=== PATIENT | male | born 1945 | race Two or more races ===

== ENCOUNTER 2024-06-21 01:00 | Inpatient (IN) | payer MEDICARE, OTHER ==
[2024-06-21] VITALS (14 sets, daily range): BP systolic 107–136; BP diastolic 55–75; TEMP 98.1–100.4; O2SAT 95–100
[~2024-06-21] VITALS: Ht 170.2 cm; Wt 68.0 kg
[2024-06-21] MEDS ORDERED: ONDANSETRON HCL/PF 4 MG/2 ML VIAL IVP PRN (04:00)
[2024-06-21] MEDS: IV NS 0.9% 1,000 ML IV SCH (04:27)
[2024-06-21] MEDS ORDERED: VANCOMYCIN 1 GM in IV D5W 250ml IV ONE (04:30)
[2024-06-21] MEDS ORDERED: METRONIDAZOLE 500MG/ NS 100ML 100 ML IV ONE (04:57)
[2024-06-21] MEDS ORDERED: CEFEPIME 1 GM VIAL ONE (04:57)
[2024-06-21] MEDS: METRONIDAZOLE 500MG/ NS 100ML 500 MG in PREMIX 1 EA IV ONE (05:04)
[2024-06-21] MEDS: CEFEPIME 2 GM in IV D5W 100 ML IV ONE (07:32)
[2024-06-21 07:44] LABS: BASOPHILS % (AUTO) 0.2 % (0.0-2.0); EOSINOPHILS # (AUTO) 0.5 K/uL (0.0-0.7); EOSINOPHILS % (AUTO) 2.4 % (0.0-6.0); HEMATOCRIT 26 % (39-51); HEMOGLOBIN 8.5 g/dL (13.5-17.5); LYMPHOCYTES # (AUTO) 1.2 K/uL (0.8-4.8); MEAN CORPUSCULAR HEMOGLOBIN 29 PG (26.0-33.0); MEAN CORPUSCULAR HGB CONC 32 g/dl (31.0-36.0); MEAN CORPUSCULAR VOLUME 90 fL (80-96); NEUTROPHILS # (AUTO) 17.5 K/uL (1.8-8.9); NEUTROPHILS % (AUTO) 86.4 % (43.0-81.0); PLATELET COUNT (AUTO) 311 K/uL (150-450); RED BLOOD CELL COUNT(AUTO) 2.93 MIL/uL (4.5-6.0); RED CELL DISTRIBUTION WIDTH 16.1 % (11.5-15.0); WHITE BLOOD COUNT (AUTO) 20.2 K/uL (4.3-11.0)
[2024-06-21 08:38] LABS: CARBON DIOXIDE 27 mmol/L (21-32); CHLORIDE 104 mmol/L (98-107); CREATININE 1.5 mg/dL (0.6-1.3); GLUCOSE 166 mg/dL (74-106); POTASSIUM 4.7 mmol/L (3.5-5.1); SODIUM SERUM 136 mmol/L (136-145); UREA NITROGEN, BLOOD 30 mg/dL (7-18)
[2024-06-21] MEDS ORDERED: ONDA-97 PO (08:47)
[2024-06-21] MEDS ORDERED: DOCU100T2 GT (08:47)
[2024-06-21] MEDS ORDERED: PANT40TA2 GT (08:47)
[2024-06-21] MEDS ORDERED: ALBU2.5V38 IH (08:47)
[2024-06-21] MEDS ORDERED: AMLO5TAB4 GT (08:47)
[2024-06-21] MEDS: ENOXAPARIN SODIUM 40 MG/0.4 ML DISP.SYRIN SQ SCH (09:40)
[2024-06-21] MEDS: METRONIDAZOLE 500MG/ NS 100ML 500 MG in PREMIX 1 EA IV SCH (12:02)
[2024-06-21] MEDS: ACETAMINOPHEN 650 MG/SUPP.RECT RC PRN (12:38)
[2024-06-21] MEDS ORDERED: CEFEPIME 2 GM in IV D5W 100 ML IV SCH (13:00)
[2024-06-21] MEDS: CEFEPIME 2 GM in IV D5W 100 ML IV SCH (13:06)
[2024-06-21] MEDS: GLUCERNA 1.2 1,000 ML BOTTLE NG PRN (14:29)
[2024-06-21] MEDS ORDERED: IV NS 0.9% 1,000 ML BAG IV PRN (14:30)
[2024-06-21 16:35] LABS: APPEARANCE,URINE CLEAR (CLEAR); BILIRUBIN,URINE NEGATIVE (NEGATIVE); BLOOD, URINE TRACE-INTA Ery/uL (NEGATIVE); COLOR,URINE YELLOW (YELLOW); KETONES,URINE NEGATIVE (NEGATIVE); LEUKOCYTE ESTERASE ,URINE 2+ (NEGATIVE); NITRITE, URINE NEGATIVE (NEGATIVE); PH,URINE 6.5 (5.0-8.0); PROTEIN,URINE TRACE mg/dl (NEGATIVE); UGLUCOSE NEGATIVE (NEGATIVE); UROBILINOGEN,URINE 0.2 EU/dL (0.2)
[2024-06-21 17:03] LABS: ADD URINE CULTURE YES; BACTERIA,URINE 1+ /HPF (None Seen); WBC,URINE 21-50 /HPF (0-3)
[2024-06-21 17:14] LABS: MUCUS,URINE Few /LPF (None Seen); SQUAMOUS EPITHELIAL CELL,UR None Seen /HPF (None Seen)
[2024-06-21 17:16] LABS: EOSINOPHIL,URINE None Seen
[2024-06-21 17:19] LABS: URINE TOTAL PROTEIN 55.5 mg/dL (0-11.9)
[2024-06-21] MEDS: ALBUTEROL FS 2.5 MG/3 ML VIAL.NEB IH SCH (17:38)
[2024-06-22] VITALS (18 sets, daily range): BP systolic 124–153; BP diastolic 68–80; TEMP 97.9–99.5; O2SAT 94–100
[2024-06-22 07:43] LABS: BASOPHILS % (AUTO) 0.2 % (0.0-2.0); EOSINOPHILS # (AUTO) 0.5 K/uL (0.0-0.7); EOSINOPHILS % (AUTO) 2.6 % (0.0-6.0); HEMATOCRIT 27 % (39-51); HEMOGLOBIN 8.4 g/dL (13.5-17.5); LYMPHOCYTES # (AUTO) 1.6 K/uL (0.8-4.8); LYMPHOCYTES % (AUTO) 8.7 % (20.0-44.0); MEAN CORPUSCULAR HEMOGLOBIN 29 PG (26.0-33.0); MEAN CORPUSCULAR HGB CONC 32 g/dl (31.0-36.0); MEAN CORPUSCULAR VOLUME 90 fL (80-96); MONOCYTES # (AUTO) 1.2 K/uL (0.1-1.30); MONOCYTES % (AUTO) 6.3 % (2.0-12.0); NEUTROPHILS # (AUTO) 15.5 K/uL (1.8-8.9); NEUTROPHILS % (AUTO) 82.2 % (43.0-81.0); PLATELET COUNT (AUTO) 301 K/uL (150-450); RED BLOOD CELL COUNT(AUTO) 2.94 MIL/uL (4.5-6.0); RED CELL DISTRIBUTION WIDTH 15.9 % (11.5-15.0); WHITE BLOOD COUNT (AUTO) 18.9 K/uL (4.3-11.0)
[2024-06-22] MEDS: PANTOPRAZOLE 40 MG TABLET.DR PO SCH (08:01)
[2024-06-22 08:56] LABS: ALANINE AMINOTRANSFERASE 13 U/L (12-78); ALKALINE PHOSPHATASE 80 U/L (46-116); ASPARTATE AMINOTRANSFERASE 19 U/L (15-37); BILIRUBIN,TOTAL 0.4 mg/dL (0.2-1.0); CARBON DIOXIDE 26 mmol/L (21-32); CHLORIDE 105 mmol/L (98-107); CREATININE 1.3 mg/dL (0.6-1.3); GLUCOSE 197 mg/dL (74-106); MAGNESIUM 2.3 mg/dL (1.8-2.4); PHOSPHORUS 2.4 mg/dL (2.5-4.9); POTASSIUM 3.4 mmol/L (3.5-5.1); SODIUM SERUM 138 mmol/L (136-145); TOTAL PROTEIN, SERUM 8.9 g/dL (6.4-8.2)
[2024-06-22 09:23] LABS: CALCIUM, SERUM 9.5 mg/dL (8.5-10.1); UREA NITROGEN, BLOOD 23 mg/dL (7-18)
[2024-06-22 10:04] LABS: CREATINE KINASE, TOTAL 66 U/L (39-308)
[2024-06-22] MEDS: AMLODIPINE BESYLATE 5 MG TABLET GT SCH (10:06)
[2024-06-22] MEDS: CLOTRIMAZOLE 1% 15 GM TUBE TP SCH (10:07)
[2024-06-22] MEDS ORDERED: VANCOMYCIN HCL 1.25 GM in IV D5W 250 ML IV SCH (14:00)
[2024-06-22] MEDS: DOCUSATE SODIUM LIQ 100 MG/10 ML UDC GT PRN (15:25)
[2024-06-22] MEDS: NEUTRA PHOS 1 POWD.PACKET PO ONE (15:25)
[2024-06-22] MEDS: CEFEPIME 2 GM in IV D5W 100 ML IV SCH (16:11)
[2024-06-22] MEDS: IV NS 0.9% 1,000 ML BAG IV SCH (18:21)
[2024-06-23] VITALS (20 sets, daily range): BP systolic 130–154; BP diastolic 60–91; TEMP 97.9–98.1; O2SAT 96–100
[2024-06-23 07:47] LABS: CALCIUM, SERUM 9.9 mg/dL (8.5-10.1); CARBON DIOXIDE 25 mmol/L (21-32); CHLORIDE 109 mmol/L (98-107); CREATININE 1.2 mg/dL (0.6-1.3); GLUCOSE 205 mg/dL (74-106); POTASSIUM 3.6 mmol/L (3.5-5.1); SODIUM SERUM 143 mmol/L (136-145); UREA NITROGEN, BLOOD 24 mg/dL (7-18)
[2024-06-23 07:59] LABS: BASOPHILS % (AUTO) 0.2 % (0.0-2.0); EOSINOPHILS # (AUTO) 0.6 K/uL (0.0-0.7); EOSINOPHILS % (AUTO) 5.2 % (0.0-6.0); HEMATOCRIT 26 % (39-51); HEMOGLOBIN 8.4 g/dL (13.5-17.5); LYMPHOCYTES # (AUTO) 0.9 K/uL (0.8-4.8); LYMPHOCYTES % (AUTO) 8.4 % (20.0-44.0); MEAN CORPUSCULAR HEMOGLOBIN 30 PG (26.0-33.0); MEAN CORPUSCULAR HGB CONC 33 g/dl (31.0-36.0); MEAN CORPUSCULAR VOLUME 91 fL (80-96); MONOCYTES # (AUTO) 0.7 K/uL (0.1-1.30); MONOCYTES % (AUTO) 6.4 % (2.0-12.0); NEUTROPHILS # (AUTO) 8.8 K/uL (1.8-8.9); NEUTROPHILS % (AUTO) 79.8 % (43.0-81.0); PLATELET COUNT (AUTO) 283 K/uL (150-450); RED BLOOD CELL COUNT(AUTO) 2.85 MIL/uL (4.5-6.0); RED CELL DISTRIBUTION WIDTH 15.6 % (11.5-15.0)
[2024-06-23 09:09] LABS: *SPE A/G RATIO 0.5 (0.7-1.7); *SPE ALBUMIN 2.6 g/dL (2.9-4.4); *SPE ALPHA-1-GLOBULIN 0.5 g/dL (0.0-0.4); *SPE BETA GLOBULIN 1.1 g/dL (0.7-1.3); *SPE GLOBULIN, TOTAL 5.4 g/dL (2.2-3.9); *SPE M-SPIKE Not Observed g/dL (Not Observed); *SPEGAMMA GLOBULIN 2.8 g/dL (0.4-1.8)
[2024-06-23 12:09] LABS: PTH, INTACT 21 pg/mL (15-65)
[2024-06-24] VITALS (15 sets, daily range): BP systolic 142–153; BP diastolic 75–92; TEMP 97.4–98.9; O2SAT 95–100
[2024-06-24 07:11] LABS: BASOPHILS % (AUTO) 0.3 % (0.0-2.0); EOSINOPHILS # (AUTO) 0.6 K/uL (0.0-0.7); EOSINOPHILS % (AUTO) 8.1 % (0.0-6.0); HEMATOCRIT 26 % (39-51); HEMOGLOBIN 8.6 g/dL (13.5-17.5); LYMPHOCYTES % (AUTO) 12.2 % (20.0-44.0); MEAN CORPUSCULAR HEMOGLOBIN 30 PG (26.0-33.0); MEAN CORPUSCULAR HGB CONC 33 g/dl (31.0-36.0); MEAN CORPUSCULAR VOLUME 91 fL (80-96); MONOCYTES # (AUTO) 0.6 K/uL (0.1-1.30); MONOCYTES % (AUTO) 8.2 % (2.0-12.0); NEUTROPHILS # (AUTO) 5.6 K/uL (1.8-8.9); NEUTROPHILS % (AUTO) 71.2 % (43.0-81.0); PLATELET COUNT (AUTO) 292 K/uL (150-450); RED BLOOD CELL COUNT(AUTO) 2.89 MIL/uL (4.5-6.0); RED CELL DISTRIBUTION WIDTH 16.1 % (11.5-15.0); WHITE BLOOD COUNT (AUTO) 7.8 K/uL (4.3-11.0)
[2024-06-24 07:46] LABS: CALCIUM, SERUM 9.6 mg/dL (8.5-10.1); CARBON DIOXIDE 25 mmol/L (21-32); CHLORIDE 109 mmol/L (98-107); CREATININE 1.2 mg/dL (0.6-1.3); GLUCOSE 193 mg/dL (74-106); POTASSIUM 3.4 mmol/L (3.5-5.1); SODIUM SERUM 144 mmol/L (136-145); UREA NITROGEN, BLOOD 20 mg/dL (7-18)
[2024-06-24] MEDS: PANTOPRAZOLE 40 MG/PACK PACK GT SCH (08:27)
[2024-06-24] MEDS: POTASSIUM CHLORIDE 20 MEQ POWDER PACKET NG SCH (10:09)
[2024-06-24] MEDS: METRONIDAZOLE 500 MG TABLET NG SCH (12:06)
[2024-06-24] MEDS ORDERED: METRONIDAZOLE 500MG/ NS 100ML 500 MG in PREMIX 1 EA IV SCH (17:30)
[2024-06-25] VITALS (17 sets, daily range): BP systolic 106–150; BP diastolic 64–84; TEMP 97.9–98.4; O2SAT 94–100
[2024-06-25 07:33] LABS: BASOPHILS % (AUTO) 0.4 % (0.0-2.0); EOSINOPHILS # (AUTO) 0.6 K/uL (0.0-0.7); EOSINOPHILS % (AUTO) 7.7 % (0.0-6.0); HEMATOCRIT 28 % (39-51); LYMPHOCYTES # (AUTO) 1.1 K/uL (0.8-4.8); LYMPHOCYTES % (AUTO) 14.7 % (20.0-44.0); MEAN CORPUSCULAR HEMOGLOBIN 29 PG (26.0-33.0); MEAN CORPUSCULAR HGB CONC 32 g/dl (31.0-36.0); MEAN CORPUSCULAR VOLUME 92 fL (80-96); MONOCYTES # (AUTO) 0.7 K/uL (0.1-1.30); MONOCYTES % (AUTO) 9.4 % (2.0-12.0); NEUTROPHILS # (AUTO) 5.2 K/uL (1.8-8.9); NEUTROPHILS % (AUTO) 67.8 % (43.0-81.0); PLATELET COUNT (AUTO) 313 K/uL (150-450); RED BLOOD CELL COUNT(AUTO) 3.08 MIL/uL (4.5-6.0); RED CELL DISTRIBUTION WIDTH 15.9 % (11.5-15.0); WHITE BLOOD COUNT (AUTO) 7.6 K/uL (4.3-11.0)
[2024-06-25 07:58] LABS: CALCIUM, SERUM 9.1 mg/dL (8.5-10.1); CARBON DIOXIDE 23 mmol/L (21-32); CHLORIDE 109 mmol/L (98-107); CREATININE 1.1 mg/dL (0.6-1.3); GLUCOSE 180 mg/dL (74-106); POTASSIUM 3.7 mmol/L (3.5-5.1); SODIUM SERUM 144 mmol/L (136-145); UREA NITROGEN, BLOOD 22 mg/dL (7-18)
[2024-06-26] VITALS (18 sets, daily range): BP systolic 133–151; BP diastolic 74–89; TEMP 97.7–98.7; O2SAT 96–100
[2024-06-26 07:24] LABS: BASOPHILS % (AUTO) 0.5 % (0.0-2.0); EOSINOPHILS # (AUTO) 0.7 K/uL (0.0-0.7); EOSINOPHILS % (AUTO) 9.6 % (0.0-6.0); HEMATOCRIT 29 % (39-51); HEMOGLOBIN 9.4 g/dL (13.5-17.5); LYMPHOCYTES # (AUTO) 1.8 K/uL (0.8-4.8); LYMPHOCYTES % (AUTO) 24.2 % (20.0-44.0); MEAN CORPUSCULAR HEMOGLOBIN 30 PG (26.0-33.0); MEAN CORPUSCULAR HGB CONC 32 g/dl (31.0-36.0); MEAN CORPUSCULAR VOLUME 92 fL (80-96); MONOCYTES # (AUTO) 0.7 K/uL (0.1-1.30); NEUTROPHILS # (AUTO) 4.3 K/uL (1.8-8.9); NEUTROPHILS % (AUTO) 56.7 % (43.0-81.0); PLATELET COUNT (AUTO) 310 K/uL (150-450); RED BLOOD CELL COUNT(AUTO) 3.17 MIL/uL (4.5-6.0); RED CELL DISTRIBUTION WIDTH 16.4 % (11.5-15.0); WHITE BLOOD COUNT (AUTO) 7.5 K/uL (4.3-11.0)
[2024-06-26 07:48] LABS: CALCIUM, SERUM 9.4 mg/dL (8.5-10.1); CARBON DIOXIDE 25 mmol/L (21-32); CHLORIDE 110 mmol/L (98-107); GLUCOSE 152 mg/dL (74-106); POTASSIUM 3.6 mmol/L (3.5-5.1); SODIUM SERUM 145 mmol/L (136-145); UREA NITROGEN, BLOOD 20 mg/dL (7-18)
[2024-06-27] VITALS (13 sets, daily range): BP systolic 126–155; BP diastolic 62–86; TEMP 98–99.9; O2SAT 96–99
[2024-06-27 07:31] LABS: BASOPHILS % (AUTO) 0.4 % (0.0-2.0); EOSINOPHILS # (AUTO) 0.6 K/uL (0.0-0.7); EOSINOPHILS % (AUTO) 9.4 % (0.0-6.0); HEMATOCRIT 30 % (39-51); HEMOGLOBIN 9.6 g/dL (13.5-17.5); LYMPHOCYTES # (AUTO) 1.4 K/uL (0.8-4.8); LYMPHOCYTES % (AUTO) 21.6 % (20.0-44.0); MEAN CORPUSCULAR HEMOGLOBIN 30 PG (26.0-33.0); MEAN CORPUSCULAR HGB CONC 32 g/dl (31.0-36.0); MEAN CORPUSCULAR VOLUME 92 fL (80-96); MONOCYTES # (AUTO) 0.6 K/uL (0.1-1.30); MONOCYTES % (AUTO) 8.8 % (2.0-12.0); NEUTROPHILS # (AUTO) 3.9 K/uL (1.8-8.9); NEUTROPHILS % (AUTO) 59.8 % (43.0-81.0); PLATELET COUNT (AUTO) 319 K/uL (150-450); RED BLOOD CELL COUNT(AUTO) 3.23 MIL/uL (4.5-6.0); WHITE BLOOD COUNT (AUTO) 6.6 K/uL (4.3-11.0)
[2024-06-27 07:42] LABS: CALCIUM, SERUM 8.9 mg/dL (8.5-10.1); CARBON DIOXIDE 25 mmol/L (21-32); CHLORIDE 109 mmol/L (98-107); GLUCOSE 169 mg/dL (74-106); POTASSIUM 3.6 mmol/L (3.5-5.1); SODIUM SERUM 144 mmol/L (136-145); UREA NITROGEN, BLOOD 21 mg/dL (7-18)
[2024-06-27] MEDS ORDERED: NUT.237L45 NG (09:52)
[2024-06-27] MEDS ORDERED: CLOT15CR35 TP (09:52)
[2024-06-27] MEDS ORDERED: LEVO750T46 GT (09:52)
[2024-06-27] MEDS ORDERED: ACET650S11 RC (09:52)
== END 2024-06-27 18:45 | disposition home health service (06) | DRG 871 ==
LOC: TELE 01:40
PROVIDERS: ADMIT Nurse Practitioner Acute Care; ATTEND Nurse Practitioner Acute Care
DX: A41.9 Sepsis, unspecified organism (principal); G93.41 Metabolic encephalopathy; J69.0 Pneumonitis due to inhalation of food and vomit; N17.0 Acute kidney failure with tubular necrosis; D68.59 Other primary thrombophilia; J96.10 Chronic respiratory failure, unspecified whether with hypoxia or hypercapnia; Z99.11 Dependence on respirator [ventilator] status; N39.0 Urinary tract infection, site not specified; J90 Pleural effusion, not elsewhere classified; Z93.0 Tracheostomy status; Z93.1 Gastrostomy status; R13.10 Dysphagia, unspecified; Z74.01 Bed confinement status; D64.9 Anemia, unspecified; I10 Essential (primary) hypertension; K21.9 Gastro-esophageal reflux disease without esophagitis; M89.8X9 Other specified disorders of bone, unspecified site; N40.0 Benign prostatic hyperplasia without lower urinary tract symptoms; B95.2 Enterococcus as the cause of diseases classified elsewhere; E86.9 Volume depletion, unspecified; S01.401A Unspecified open wound of right cheek and temporomandibular area, initial encounter; X58.XXXA Exposure to other specified factors, initial encounter; Y92.009 Unspecified place in unspecified non-institutional (private) residence as the place of occurrence of the external cause
CPT/HCPCS: 31720; 36415; 71045-TC; 76770-TC; 80048-TC; 80053-TC; 81001; 82550-TC; 82570-TC; 83605-TC; 83735-TC; 83970; 84100-TC; 84155; 84165; 84300-TC; 85025-TC; 87040-TC; 87081-TC; 87086-TC; 93307-TC; 94640-TC; 94760-TC; 94761-TC; 94799-TC; A4216; A4223; A4623; A6403; A7526; G0378; J0692; J1650; J3370; J7030; J7060

== ENCOUNTER 2025-05-17 06:53 | Inpatient (IN) | payer OTHER ==
[2025-05-17] VITALS (46 sets, daily range): BP systolic 81–148; BP diastolic 42–102; TEMP 98.2–98.9; O2SAT 98–100
[~2025-05-17] VITALS: Ht 170.2 cm; Wt 59.9 kg
[~2025-05-17 06:53] MED LIST: ACET650S11 RC; ALBU2.5V38 IH; AMLO5TAB4 GT; CLOT15CR35 TP; DOCU100T2 GT; LEVO750T46 GT; NUT.237L45 NG; ONDA-97 PO; PANT40TA2 GT
[2025-05-17] MEDS ORDERED: IV NS 0.9% 500 ML BAG IV ONE (07:00)
[2025-05-17] MEDS ORDERED: PANTOPRAZOLE 40 MG VIAL ONE (07:18)
[2025-05-17] MEDS: IV NS 0.9% 1,000 ML BAG IV ONE (07:18)
[2025-05-17] MEDS ORDERED: ONDANSETRON HCL/PF 4 MG/2 ML VIAL ONE (07:19)
[2025-05-17] MEDS ORDERED: PIPERACI/TAZO 3.375GM/D5W 50ML PB IV ONE (07:19)
[2025-05-17] MEDS: PIPERACILLIN /TAZOBACTAM 3.375 G in IV D5W 50 ML IV ONE (07:22)
[2025-05-17] MEDS: ONDANSETRON HCL/PF 4 MG/2 ML VIAL IVP ONE (07:22)
[2025-05-17] MEDS: PANTOPRAZOLE 40 MG VIAL IV ONE (07:22)
[2025-05-17 07:36] LABS: PLATELET COUNT (AUTO) 439 K/uL (150-450); RED BLOOD CELL COUNT(AUTO) 3.30 MIL/uL (4.5-6.0); RED CELL DISTRIBUTION WIDTH 16.6 % (11.5-15.0); WHITE BLOOD COUNT (AUTO) 9.3 K/uL (4.3-11.0)
[2025-05-17 07:43] LABS: ASPARTATE AMINOTRANSFERASE 25.0 U/L (15-37); CALCIUM, SERUM 9.8 mg/dL (8.5-10.1); CREATININE 2.1 mg/dL (0.6-1.3); SODIUM SERUM 147.0 mmol/L (136-145); TOTAL PROTEIN, SERUM 11.5 g/dL (6.4-8.2); UREA NITROGEN, BLOOD 39.0 mg/dL (7-18)
[2025-05-17 07:45] LABS: INR 1.11 (0.91-1.10)
[2025-05-17 07:46] LABS: LACTIC ACID 8.2 mmol/L (0.4-2.0)
[2025-05-17 07:51] LABS: ABG BASE EXCESS 1.2 mmol/L (-2.0-3.0); ABG OXYGEN SATURATION 97.1 % (94.0-98.0); ABG PCO2 38.3 mmHg (35.0-48.0); ABG PH 7.439 (7.350-7.450); ABG PO2 96.1 mmHg (83.0-108.0); ABG TOTAL HEMOGLOBIN 9.1 G/dL (13.5-17.5); FRACTIONATED INSPIRED OXYGEN 80.0 %; PEEP,BG 0 cm H2O; SET RATE, BG 16.0; SITE, ABG LEFT RADIAL; VT, ABG 500 mL
[2025-05-17 08:06] LABS: APPEARANCE,URINE CLOUDY (CLEAR); BLOOD, URINE 3+ Ery/uL (NEGATIVE); LEUKOCYTE ESTERASE ,URINE 3+ (NEGATIVE); NITRITE, URINE NEGATIVE (NEGATIVE); UGLUCOSE NEGATIVE (NEGATIVE)
[2025-05-17 08:23] LABS: ADD URINE CULTURE YES; SQUAMOUS EPITHELIAL CELL,UR 0-2 /HPF (None Seen)
[2025-05-17] MEDS: ACETAMINOPHEN 650 MG/SUPP.RECT RC ONE (08:30)
[2025-05-17] MEDS ORDERED: ACETAMINOPHEN 325 MG/SUPP.RECT RC ONE (08:54)
[2025-05-17] MEDS ORDERED: ONDANSETRON HCL/PF 4 MG/2 ML VIAL IVP PRN (09:00)
[2025-05-17] MEDS ORDERED: NOREPINEPHRINE 8 MG in IV NS 0.9% 250 ML IV PRN (09:00)
[2025-05-17] MEDS ORDERED: DOSING PER PHARMACY-VANCOMYCIN IV XX PRN (09:30)
[2025-05-17] MEDS ORDERED: IPRA4AER IH ×2 (09:46)
[2025-05-17] MEDS ORDERED: [UNRECOGNIZED DRUG - OTHER] GT (09:46)
[2025-05-17] MEDS ORDERED: HEPA50007 SQ (09:46)
[2025-05-17] MEDS ORDERED: NA P133E RC (09:46)
[2025-05-17] MEDS ORDERED: MULT-213 GT (09:46)
[2025-05-17] MEDS ORDERED: CITR30IR IR (09:46)
[2025-05-17] MEDS ORDERED: DILT60TA3 GT (09:46)
[2025-05-17] MEDS ORDERED: CHLO473M5 PO (09:46)
[2025-05-17] MEDS ORDERED: BISA10SU11 RC (09:46)
[2025-05-17] MEDS ORDERED: MAGN400O6 GT ×2 (09:46)
[2025-05-17] MEDS ORDERED: PANT40SU2 GT (09:46)
[2025-05-17] MEDS ORDERED: ACET325T53 GT ×2 (09:46)
[2025-05-17] MEDS ORDERED: CRAN3875 GT (09:46)
[2025-05-17] MEDS ORDERED: NOREPINEPHRINE 8MG/250ML RTU 250 ML IV ONE (10:35)
[2025-05-17] MEDS ORDERED: NOREPINEPHRINE 8 MG in IV D5W 242 ML IV PRN (11:00)
[2025-05-17] MEDS: IV LR 1000 ML 1,000 ML IV PRN (11:23)
[2025-05-17] MEDS ORDERED: PIPERACILLIN /TAZOBACTAM 2.25 G in IV D5W 50 ML IV SCH (12:00)
[2025-05-17] MEDS: NOREPINEPHRINE 8 MG in IV NS 0.9% 250 ML IV PRN (12:03)
[2025-05-17] MEDS: VANCOMYCIN 1 GM in IV D5W 250ml IV ONE (12:17)
[2025-05-17] MEDS: PANTOPRAZOLE 40 MG VIAL IV SCH (12:24)
[2025-05-17] MEDS: IPRATROPIUM NEB FS 0.5 MG/2.5 ML AMPUL.NEB NEB SCH (14:03)
[2025-05-17] MEDS: ALBUTEROL HALF STRENGTH 1.25 MG/3 ML VIAL.NEB NEB SCH (14:03)
[2025-05-17 14:43] LABS: EOSINOPHILS % (MANUAL) 2 % (0-4); LYMPHOCYTES % (MANUAL) 41 % (16-48); MONOCYTES % (MANUAL) 2 % (0-11.0); NEUTROPHILS % (MANUAL) 55 (42-76); PLATELET ESTIMATE ADEQUATE
[2025-05-17] MEDS: PIPERACILLIN /TAZOBACTAM 3.375 G in IV D5W 100 ML IV SCH (16:17)
[2025-05-17] MEDS: NOREPINEPHRINE 8 MG in IV D5W 242 ML IV PRN (18:29)
[2025-05-18] VITALS (50 sets, daily range): BP systolic 91–144; BP diastolic 45–80; TEMP 97.5–100.4; O2SAT 94–100
[2025-05-18 03:47] LABS: PLATELET COUNT (AUTO) 227 K/uL (150-450); RED BLOOD CELL COUNT(AUTO) 2.04 MIL/uL (4.5-6.0); RED CELL DISTRIBUTION WIDTH 17.1 % (11.5-15.0); WHITE BLOOD COUNT (AUTO) 13.0 K/uL (4.3-11.0)
[2025-05-18 03:57] LABS: ASPARTATE AMINOTRANSFERASE 19.0 U/L (15-37); CALCIUM, SERUM 8.4 mg/dL (8.5-10.1); CREATININE 2.0 mg/dL (0.6-1.3); SODIUM SERUM 151.0 mmol/L (136-145); TOTAL PROTEIN, SERUM 7.9 g/dL (6.4-8.2); UREA NITROGEN, BLOOD 36.0 mg/dL (7-18)
[2025-05-18] MEDS: ACETAMINOPHEN 650 MG/SUPP.RECT RC PRN (03:59)
[2025-05-18 04:01] LABS: IRON, SERUM 9.0 ug/dl (50-175)
[2025-05-18 04:05] LABS: LACTIC ACID 2.1 mmol/L (0.4-2.0)
[2025-05-18 05:16] LABS: BAND % (MANUAL) 21 % (0.0-5.0); BASOPHILS % (MANUAL) 0 % (0.0-2.0); EOSINOPHILS % (MANUAL) 1 % (0-4); LYMPHOCYTES % (MANUAL) 18 % (16-48); MONOCYTES % (MANUAL) 6 % (0-11.0); NEUTROPHILS % (MANUAL) 54 (42-76); PLATELET ESTIMATE ADEQUATE
[2025-05-18] MEDS ORDERED: NAPROXEN 250 MG TABLET ONE (09:14)
[2025-05-18] MEDS: IV D5W 1,000 ML IV SCH (09:27)
[2025-05-18] MEDS: CLOTRIMAZOLE 1% 15 GM TUBE TP SCH (10:21)
[2025-05-18] MEDS: Z GUARD REMEDY 4 OZ OINT TP SCH (10:22)
[2025-05-18] MEDS: VANCOMYCIN 750 MG in IV D5W 250 ML IV SCH (11:51)
[2025-05-18] MEDS: MUPIROCIN OINT 2% 22 GM TUBE NS SCH (20:20)
[2025-05-19] VITALS (19 sets, daily range): BP systolic 82–169; BP diastolic 46–95; TEMP 98.1–99.1; O2SAT 94–100
[2025-05-19 04:25] LABS: RED BLOOD CELL COUNT(AUTO) 2.94 MIL/uL (4.5-6.0); RED CELL DISTRIBUTION WIDTH 17.1 % (11.5-15.0); WHITE BLOOD COUNT (AUTO) 13.5 K/uL (4.3-11.0)
[2025-05-19 04:38] LABS: CALCIUM, SERUM 9.0 mg/dL (8.5-10.1); CREATININE 1.8 mg/dL (0.6-1.3); SODIUM SERUM 143.0 mmol/L (136-145); UREA NITROGEN, BLOOD 20.0 mg/dL (7-18)
[2025-05-19 06:18] LABS: PLATELET COUNT (AUTO) 169 K/uL (150-450)
[2025-05-19 06:19] LABS: PLATELET ESTIMATE PLATELET CLUMPS SEEN
[2025-05-19 06:23] LABS: BAND % (MANUAL) 4 % (0.0-5.0); BASOPHILS % (MANUAL) 0 % (0.0-2.0); EOSINOPHILS % (MANUAL) 5 % (0-4); LYMPHOCYTES % (MANUAL) 17 % (16-48); MONOCYTES % (MANUAL) 2 % (0-11.0); NEUTROPHILS % (MANUAL) 72 (42-76)
[2025-05-19] MEDS: DILTIAZEM HCL 30 MG TABLET PO SCH (09:24)
[2025-05-19] MEDS: POTASSIUM CL. PREMIX PERIPHER. 50 ML IV SCH (11:35)
[2025-05-19] MEDS: JEVITY 1.2 CAL 1,000 ML BOTTLE GT PRN (13:22)
[2025-05-19] MEDS: ACETAMINOPHEN 325 MG TABLET PO PRN (17:38)
[2025-05-19] MEDS: IV NS 0.9% 500 ML IV ONE (20:02)
[2025-05-19] MEDS: MIDODRINE HCL (5MG) 5 MG TABLET PO SCH (20:04)
[2025-05-20] VITALS (7 sets, daily range): BP systolic 113–154; BP diastolic 61–67; TEMP 97.5–101.3; O2SAT 97–99
[2025-05-20 07:34] LABS: PLATELET COUNT (AUTO) 185 K/uL (150-450); RED BLOOD CELL COUNT(AUTO) 3.29 MIL/uL (4.5-6.0); RED CELL DISTRIBUTION WIDTH 16.8 % (11.5-15.0); WHITE BLOOD COUNT (AUTO) 14.1 K/uL (4.3-11.0)
[2025-05-20 07:47] LABS: CALCIUM, SERUM 8.9 mg/dL (8.5-10.1); CREATININE 1.5 mg/dL (0.6-1.3); SODIUM SERUM 139.0 mmol/L (136-145); UREA NITROGEN, BLOOD 15.0 mg/dL (7-18)
[2025-05-20 09:07] LABS: EOSINOPHILS % (MANUAL) 5 % (0-4); LYMPHOCYTES % (MANUAL) 6 % (16-48); MONOCYTES % (MANUAL) 8 % (0-11.0); NEUTROPHILS % (MANUAL) 81 (42-76); PLATELET ESTIMATE ADEQUATE
[2025-05-20] MEDS ORDERED: POTASSIUM CHLORIDE 10 MEQ/50 ML PREMIXED IVPB FOR PERIPHERAL LINE IV ONE (10:00)
[2025-05-20] MEDS: POTASSIUM CL. PREMIX PERIPHER. 50 ML IV SCH (10:16)
[2025-05-21] VITALS: BP 141/70; TEMP 98.2; O2SAT 98
[2025-05-21 04:00] VITALS: BP 153/79; TEMP 98.4; O2SAT 99
[2025-05-21 07:31] LABS: CALCIUM, SERUM 8.9 mg/dL (8.5-10.1); CREATININE 1.5 mg/dL (0.6-1.3); SODIUM SERUM 136.0 mmol/L (136-145); UREA NITROGEN, BLOOD 16.0 mg/dL (7-18)
[2025-05-21 08:00] VITALS: BP 142/84; TEMP 99.1; O2SAT 97
[2025-05-21] MEDS: Z GUARD REMEDY 4 OZ OINT TP PRN (08:26)
[2025-05-21 08:35] LABS: PLATELET COUNT (AUTO) 209 K/uL (150-450); RED BLOOD CELL COUNT(AUTO) 3.06 MIL/uL (4.5-6.0); RED CELL DISTRIBUTION WIDTH 16.6 % (11.5-15.0); WHITE BLOOD COUNT (AUTO) 11.6 K/uL (4.3-11.0)
[2025-05-21] MEDS ORDERED: DILT30TA14 GT (09:17)
[2025-05-21] MEDS ORDERED: POTASSIUM CHLORIDE 20 MEQ TAB.PRT.SR PO ONE (09:30)
[2025-05-21] MEDS ORDERED: AMLODIPINE BESYLATE 5 MG TABLET PO SCH (09:30)
[2025-05-21] MEDS: POTASSIUM CHLORIDE 20 MEQ POWDER PACKET GT SCH (10:05)
[2025-05-21] MEDS: FLUCONAZOLE (100 MG) 100 MG TABLET GT SCH (10:05)
[2025-05-21] MEDS: DILTIAZEM HCL 30 MG TABLET PO SCH (10:06)
[2025-05-21 12:00] VITALS: BP 142/71; TEMP 99.9; O2SAT 96
[2025-05-21] MEDS: MEROPENEM 1 G in IV NS 0.9% 100 ML IV SCH (14:28)
[2025-05-21 16:00] VITALS: BP 142/74; TEMP 99.9; O2SAT 96
[2025-05-21 20:00] VITALS: BP 137/72; TEMP 98.8; O2SAT 96
[2025-05-22] VITALS: BP 137/74; TEMP 98.6; O2SAT 96
[2025-05-22] MEDS: GLUCERNA 1.2 1,000 ML BOTTLE GT SCH (00:39)
[2025-05-22 00:44] VITALS: BP 137/57
== END 2025-05-22 02:00 | DRG 698 ==
LOC: ER 06:55 → ICU 08:42 → TELE1 05-19 16:57 → TELE-TD 05-19 17:49 → TELE1 05-20 09:35
PROVIDERS: ADMIT Internal Medicine; ATTEND Internal Medicine
PROC: 5A1955Z Respiratory Ventilation, Greater than 96 Consecutive Hours (ICD-10-PCS; principal; 2025-05-17)
PROC: 06HY33Z Insertion of Infusion Device into Lower Vein, Percutaneous Approach (ICD-10-PCS; 2025-05-17)
PROC: 30233N1 Transfusion of Nonautologous Red Blood Cells into Peripheral Vein, Percutaneous Approach (ICD-10-PCS; 2025-05-18)
DX: T83.510A Infection and inflammatory reaction due to cystostomy catheter, initial encounter (principal); A41.9 Sepsis, unspecified organism; J96.21 Acute and chronic respiratory failure with hypoxia; R65.21 Severe sepsis with septic shock; R53.2 Functional quadriplegia; N17.0 Acute kidney failure with tubular necrosis; G93.41 Metabolic encephalopathy; E87.20 Acidosis, unspecified; Z99.11 Dependence on respirator [ventilator] status; K92.2 Gastrointestinal hemorrhage, unspecified; D62 Acute posthemorrhagic anemia; N39.0 Urinary tract infection, site not specified; J95.851 Ventilator associated pneumonia; Y84.6 Urinary catheterization as the cause of abnormal reaction of the patient, or of later complication, without mention of misadventure at the time of the procedure; Y92.129 Unspecified place in nursing home as the place of occurrence of the external cause; Z20.822 Contact with and (suspected) exposure to COVID-19; I12.9 Hypertensive chronic kidney disease with stage 1 through stage 4 chronic kidney disease, or unspecified chronic kidney disease; Z93.1 Gastrostomy status; D64.9 Anemia, unspecified; Z93.0 Tracheostomy status; Y84.8 Other medical procedures as the cause of abnormal reaction of the patient, or of later complication, without mention of misadventure at the time of the procedure; Z22.322 Carrier or suspected carrier of Methicillin resistant Staphylococcus aureus; Y83.3 Surgical operation with formation of external stoma as the cause of abnormal reaction of the patient, or of later complication, without mention of misadventure at the time of the procedure; N18.9 Chronic kidney disease, unspecified; Z85.818 Personal history of malignant neoplasm of other sites of lip, oral cavity, and pharynx; Z86.73 Personal history of transient ischemic attack (TIA), and cerebral infarction without residual deficits; E11.22 Type 2 diabetes mellitus with diabetic chronic kidney disease
CPT/HCPCS: 31720; 36415; 36600; 71045-TC; 80048-TC; 80053-TC; 80076-TC; 80202-TC; 81001; 82803-TC; 82962-TC; 83540-TC; 83605-TC; 84484-TC; 85025-TC; 85027-TC; 85730-TC; 86850-TC; 87040-TC; 87070-TC; 87081-TC; 87086-TC; 87186-TC; 87205-TC; 94002-TC; 94003-TC; 94760-TC; 94761-TC; 94762-TC; 94799-TC; 99082-TC; A4223; A7526; G0378; J2185; J2405; J2470; J2543; J3373; J3374; J3480; J7030; J7040; J7042; J7050; J7060; J7070; J7120; P9016

== ENCOUNTER 2025-06-22 04:20 | Inpatient (IN) | payer OTHER ==
[~2025-06-22] VITALS: Ht 172.7 cm; Wt 56.7 kg
[2025-06-22] VITALS (26 sets, daily range): BP systolic 61–157; BP diastolic 44–78; TEMP 98.9–100.1; O2SAT 95–100
[~2025-06-22 04:20] MED LIST changes: +ACET325T53 GT; -ACET650S11 RC; -ALBU2.5V38 IH; -AMLO5TAB4 GT; +BISA10SU11 RC; +CHLO473M5 MM; +CITR30IR IR; -CLOT15CR35 TP; +CRAN3875 GT; +DILT30TA14 GT; -DOCU100T2 GT; +HEPA50007 SQ; +IPRA4AER IH; -LEVO750T46 GT; +MAGN400O6 GT; +MULT-213 GT; +NA P133E RC; -NUT.237L45 NG; -ONDA-97 PO; +PANT40SU2 GT; -PANT40TA2 GT; +[UNRECOGNIZED DRUG - OTHER] GT
[2025-06-22] MEDS: IV NS 0.9% 1,000 ML BAG IV ONE (04:30)
[2025-06-22] MEDS: ACETAMINOPHEN 650 MG/SUPP.RECT RC ONE (04:30)
[2025-06-22] MEDS: CEFEPIME 1 GM in IV D5W 50 ML IV ONE (04:38)
[2025-06-22] MEDS ORDERED: CEFEPIME 1 GM VIAL ONE (04:39)
[2025-06-22] MEDS ORDERED: ACETAMINOPHEN 325 MG/SUPP.RECT RC ONE (04:40)
[2025-06-22] MEDS ORDERED: ACETAMINOPHEN 650 MG/SUPP.RECT RC ONE (04:40)
[2025-06-22 06:26] LABS: INR 1.12 (0.91-1.10); PLATELET COUNT (AUTO) 340 K/uL (150-450); RED BLOOD CELL COUNT(AUTO) 3.12 MIL/uL (4.5-6.0); RED CELL DISTRIBUTION WIDTH 18.9 % (11.5-15.0); WHITE BLOOD COUNT (AUTO) 16.3 K/uL (4.3-11.0)
[2025-06-22 06:29] LABS: CALCIUM, SERUM 9.5 mg/dL (8.5-10.1); SODIUM SERUM 139 mmol/L (136-145)
[2025-06-22 06:30] LABS: ASPARTATE AMINOTRANSFERASE 24 U/L (15-37); CREATININE 2.3 mg/dL (0.6-1.3); LACTIC ACID 5.7 mmol/L (0.4-2.0); TOTAL PROTEIN, SERUM 10.1 g/dL (6.4-8.2); UREA NITROGEN, BLOOD 59 mg/dL (7-18)
[2025-06-22] MEDS ORDERED: VANCOMYCIN 1 GM /D5W 250 ML PB IV ONE (06:30)
[2025-06-22] MEDS: VANCOMYCIN 1 GM in IV D5W 250 ML IV ONE (06:43)
[2025-06-22 07:27] LABS: APPEARANCE,URINE CLEAR (CLEAR); BLOOD, URINE TRACE-INTA Ery/uL (NEGATIVE); LEUKOCYTE ESTERASE ,URINE 2+ (NEGATIVE); NITRITE, URINE NEGATIVE (NEGATIVE); UGLUCOSE NEGATIVE (NEGATIVE)
[2025-06-22 08:10] LABS: ADD URINE CULTURE YES; SQUAMOUS EPITHELIAL CELL,UR 0-2 /HPF (None Seen)
[2025-06-22] MEDS ORDERED: ACET-2030 GT (08:10)
[2025-06-22] MEDS ORDERED: ZINC50TA69 GT (08:10)
[2025-06-22] MEDS ORDERED: AMIN30LI66 GT (08:10)
[2025-06-22] MEDS ORDERED: DOCU100T2 GT (08:10)
[2025-06-22] MEDS ORDERED: NUT.237L30 GT (08:10)
[2025-06-22] MEDS ORDERED: DILT30TA14 GT (08:10)
[2025-06-22] MEDS ORDERED: ASCO-340 GT (08:10)
[2025-06-22] MEDS: IV NS 0.9% 1,000 ML IV ONE (08:20)
[2025-06-22] MEDS ORDERED: ACETAMINOPHEN 325 MG TABLET PO PRN (08:30)
[2025-06-22] MEDS ORDERED: NA PHOS,M-B/NA PHOS,DI-BA 1 EA ENEMA RC PRN (08:30)
[2025-06-22] MEDS ORDERED: DOSING PER PHARMACY-VANCOMYCIN IV XX PRN (08:30)
[2025-06-22] MEDS ORDERED: BISACODYL SUPP (10 MG) 10 MG/SUPP.RECT SUPP.RECT RC PRN (08:30)
[2025-06-22] MEDS ORDERED: MAGNESIUM HYDROXIDE 30 ML UDC GT PRN (08:30)
[2025-06-22] MEDS ORDERED: CITRIC AC IR SCH (09:00)
[2025-06-22] MEDS ORDERED: ALBUTEROL FS 2.5 MG/3 ML VIAL.NEB NEB PRN (09:00)
[2025-06-22] MEDS ORDERED: HEPARIN SODIUM, PORCINE 5000 UNITS/1 ML VIAL SQ SCH (09:00)
[2025-06-22] MEDS ORDERED: [UNRECOGNIZED DRUG - OTHER] GT SCH (09:00)
[2025-06-22] MEDS ORDERED: MAG CARB IR SCH (09:00)
[2025-06-22] MEDS ORDERED: [UNRECOGNIZED DRUG - OTHER] IR SCH (09:00)
[2025-06-22] MEDS ORDERED: GLUCONOLACT IR SCH (09:00)
[2025-06-22] MEDS ORDERED: IPRATROPIUM NEB FS 0.5 MG/2.5 ML AMPUL.NEB NEB PRN ×2 (09:00)
[2025-06-22] MEDS ORDERED: Medication Not On Formulary EA (Cran/Vitc/Mannose/Inulin/Brom (Uti-Stat Liquid) 30 ML) GT SCH (09:00)
[2025-06-22] MEDS: PANTOPRAZOLE 40 MG/PACK PACK GT SCH (09:32)
[2025-06-22] MEDS: ASCORBIC ACID 500 MG TABLET GT SCH (09:32)
[2025-06-22] MEDS: CHLORHEXIDINE GLUCONATE 15 ML UDC MM SCH (09:32)
[2025-06-22] MEDS: ZINC SULFATE 220 MG CAPSULE GT SCH (09:32)
[2025-06-22] MEDS: DOCUSATE SODIUM LIQ 100 MG/10 ML UDC GT SCH (09:32)
[2025-06-22] MEDS: MULTIVIT W/MINERALS 1 TAB TABLET GT SCH (09:32)
[2025-06-22] MEDS: PROSOURCE / PROSTAT (PYXIS) 30 ML UDC GT SCH (09:32)
[2025-06-22] MEDS ORDERED: PHENYLEPHRINE 50 MG in IV NS 0.9% 245 ML IV PRN (11:00)
[2025-06-22] MEDS: PIPERACILLIN /TAZOBACTAM 3.375 G in IV D5W 50 ML IV SCH (11:55)
[2025-06-22] MEDS ORDERED: DEXTROSE 50%-WATER 50 ML DISP.SYRIN IV PRN (12:00)
[2025-06-22] MEDS: BLOOD SUGAR DIAGNOSTIC 1 EACH STRIP IN SCH (12:11)
[2025-06-22] MEDS: IPRATROPIUM NEB FS 0.5 MG/2.5 ML AMPUL.NEB NEB SCH (14:01)
[2025-06-22] MEDS: Z GUARD REMEDY 4 OZ OINT TP SCH (21:24)
[2025-06-22] MEDS: ACETAMINOPHEN 650 MG/20.3 ML UDC GT PRN (22:13)
[2025-06-23] VITALS (26 sets, daily range): BP systolic 103–157; BP diastolic 58–87; TEMP 98.3–99.8; O2SAT 96–100
[2025-06-23] MEDS: INSULIN REGULAR, HUMAN 100 UNIT/ML 3 ML VIAL SQ PRN (00:02)
[2025-06-23 04:24] LABS: PLATELET COUNT (AUTO) 195 K/uL (150-450); RED BLOOD CELL COUNT(AUTO) 2.16 MIL/uL (4.5-6.0); RED CELL DISTRIBUTION WIDTH 18.1 % (11.5-15.0); WHITE BLOOD COUNT (AUTO) 11.1 K/uL (4.3-11.0)
[2025-06-23 04:37] LABS: CALCIUM, SERUM 8.6 mg/dL (8.5-10.1); CREATININE 1.8 mg/dL (0.6-1.3); SODIUM SERUM 143.0 mmol/L (136-145); UREA NITROGEN, BLOOD 35.0 mg/dL (7-18)
[2025-06-23 04:43] LABS: ASPARTATE AMINOTRANSFERASE 11.0 U/L (15-37); TOTAL PROTEIN, SERUM 7.8 g/dL (6.4-8.2)
[2025-06-23 04:50] LABS: LACTIC ACID 1.0 mmol/L (0.4-2.0)
[2025-06-23 05:13] LABS: EOSINOPHILS % (MANUAL) 3 % (0-4); LYMPHOCYTES % (MANUAL) 14 % (16-48); MONOCYTES % (MANUAL) 4 % (0-11.0); NEUTROPHILS % (MANUAL) 79 (42-76)
[2025-06-23 05:14] LABS: PLATELET ESTIMATE ADEQUATE
[2025-06-23 05:29] LABS: PLATELET COUNT (AUTO) 207 K/uL (150-450); RED BLOOD CELL COUNT(AUTO) 2.33 MIL/uL (4.5-6.0); RED CELL DISTRIBUTION WIDTH 18.4 % (11.5-15.0); WHITE BLOOD COUNT (AUTO) 12.0 K/uL (4.3-11.0)
[2025-06-23] MEDS: VANCOMYCIN 750 MG in IV D5W 250 ML IV SCH (05:55)
[2025-06-23 06:20] LABS: PLATELET ESTIMATE ADEQUATE
[2025-06-23 09:37] LABS: OCCULT BLOOD STOOL NEGATIVE (NEGATIVE)
[2025-06-23] MEDS: IV NS 0.9% 1,000 ML IV PRN (09:53)
[2025-06-23] MEDS: PANTOPRAZOLE 40 MG VIAL IV SCH (09:53)
[2025-06-23] MEDS: ZOSYN IVPB 2.25 G in IV D5W 50ml IV SCH (11:29)
[2025-06-24] VITALS: BP 140/74; TEMP 97; O2SAT 100
[2025-06-24 04:00] VITALS: BP 151/74; TEMP 98.4; O2SAT 100
[2025-06-24 07:42] LABS: PLATELET COUNT (AUTO) 205 K/uL (150-450); RED BLOOD CELL COUNT(AUTO) 3.63 MIL/uL (4.5-6.0); RED CELL DISTRIBUTION WIDTH 16.6 % (11.5-15.0); WHITE BLOOD COUNT (AUTO) 10.4 K/uL (4.3-11.0)
[2025-06-24 07:56] LABS: CALCIUM, SERUM 8.9 mg/dL (8.5-10.1); CREATININE 1.3 mg/dL (0.6-1.3); SODIUM SERUM 141.0 mmol/L (136-145); UREA NITROGEN, BLOOD 23.0 mg/dL (7-18)
[2025-06-24 08:15] VITALS: BP 153/76; TEMP 97.2; O2SAT 96
[2025-06-24] MEDS: DILTIAZEM HCL 30 MG TABLET PEG SCH (09:43)
[2025-06-24] MEDS: POTASSIUM CHLORIDE 20 MEQ TAB.PRT.SR PO ONE (09:43)
[2025-06-24] MEDS: MUPIROCIN OINT 2% 22 GM TUBE NS SCH (10:29)
[2025-06-24 12:37] VITALS: BP 169/75; TEMP 97.9; O2SAT 99
[2025-06-24] MEDS ORDERED: MEROPENEM 1 G in IV NS 0.9% 100 ML IV SCH (16:00)
[2025-06-24] MEDS ORDERED: PANTOPRAZOLE 40 MG/PACK PACK GT SCH (17:00)
== END 2025-06-24 14:44 | DRG 871 ==
LOC: ER 05:44 → ICU 07:19 → TELE1 06-23 20:18
PROVIDERS: ADMIT Internal Medicine; ATTEND Internal Medicine
PROC: 5A1945Z Respiratory Ventilation, 24-96 Consecutive Hours (ICD-10-PCS; principal; 2025-06-22)
PROC: 30233N1 Transfusion of Nonautologous Red Blood Cells into Peripheral Vein, Percutaneous Approach (ICD-10-PCS; 2025-06-23)
DX: A41.9 Sepsis, unspecified organism (principal); J96.21 Acute and chronic respiratory failure with hypoxia; R65.21 Severe sepsis with septic shock; J95.851 Ventilator associated pneumonia; E87.20 Acidosis, unspecified; N17.9 Acute kidney failure, unspecified; N39.0 Urinary tract infection, site not specified; Z99.11 Dependence on respirator [ventilator] status; Z16.12 Extended spectrum beta lactamase (ESBL) resistance; J90 Pleural effusion, not elsewhere classified; D64.9 Anemia, unspecified; I10 Essential (primary) hypertension; Z93.1 Gastrostomy status; B96.4 Proteus (mirabilis) (morganii) as the cause of diseases classified elsewhere; Z86.73 Personal history of transient ischemic attack (TIA), and cerebral infarction without residual deficits; K21.9 Gastro-esophageal reflux disease without esophagitis; E11.9 Type 2 diabetes mellitus without complications; Z93.0 Tracheostomy status; Z85.818 Personal history of malignant neoplasm of other sites of lip, oral cavity, and pharynx; Y83.3 Surgical operation with formation of external stoma as the cause of abnormal reaction of the patient, or of later complication, without mention of misadventure at the time of the procedure; Y92.129 Unspecified place in nursing home as the place of occurrence of the external cause; Z93.50 Unspecified cystostomy status; S01.401A Unspecified open wound of right cheek and temporomandibular area, initial encounter; X58.XXXA Exposure to other specified factors, initial encounter; Y93.9 Activity, unspecified; L98.8 Other specified disorders of the skin and subcutaneous tissue; L53.9 Erythematous condition, unspecified
CPT/HCPCS: 31720; 36415; 36600; 71045-TC; 76604-TC; 80048-TC; 80053-TC; 80076-TC; 81001; 82272-TC; 82803-TC; 82962-TC; 83605-TC; 83735-TC; 84484-TC; 85025-TC; 85027-TC; 85730-TC; 86850-TC; 87040-TC; 87081-TC; 87086-TC; 87186-TC; 94003-TC; 94799-TC; 99082-TC; A4223; A6403; G0378; J0692; J1815; J2185; J2470; J2543; J3373; J3374; J7030; J7050; J7060; P9016

== ENCOUNTER 2025-07-14 01:11 | Inpatient (IN) | payer OTHER ==
[~2025-07-14] VITALS: Ht 172.7 cm; Wt 59.2 kg
[2025-07-14] VITALS (29 sets, daily range): BP systolic 84–144; BP diastolic 45–96; TEMP 97.4–98.8; O2SAT 95–100
[~2025-07-14 01:11] MED LIST changes: +ACET-2030 GT; +AMIN30LI66 GT; +ASCO-340 GT; +DOCU100T2 GT; +NUT.237L30 GT; +ZINC50TA69 GT
[2025-07-14 01:42] LABS: PLATELET COUNT (AUTO) 516 K/uL (150-450); RED BLOOD CELL COUNT(AUTO) 4.35 MIL/uL (4.5-6.0); RED CELL DISTRIBUTION WIDTH 15.9 % (11.5-15.0); WHITE BLOOD COUNT (AUTO) 21.0 K/uL (4.3-11.0)
[2025-07-14] MEDS ORDERED: PANTOPRAZOLE 40 MG VIAL ONE (01:45)
[2025-07-14] MEDS ORDERED: ONDANSETRON HCL/PF 4 MG/2 ML VIAL ONE (01:46)
[2025-07-14] MEDS ORDERED: ACETAMINOPHEN 650 MG/SUPP.RECT RC ONE (01:47)
[2025-07-14 01:55] LABS: INR 1.01 (0.91-1.10)
[2025-07-14] MEDS: ONDANSETRON HCL/PF 4 MG/2 ML VIAL IVP ONE (01:56)
[2025-07-14] MEDS: ACETAMINOPHEN 650 MG/SUPP.RECT RC ONE (01:56)
[2025-07-14] MEDS: IV NS 0.9% 500 ML BAG IV ONE (02:00)
[2025-07-14] MEDS: PANTOPRAZOLE 80 MG in IV NS 0.9% 500 ML IV ONE (02:00)
[2025-07-14] MEDS: PANTOPRAZOLE 80 MG in IV NS 0.9% 100 ML IV ONE (02:00)
[2025-07-14 02:01] LABS: LACTIC ACID 5.3 mmol/L (0.4-2.0)
[2025-07-14 02:24] LABS: CALCIUM, SERUM 10.2 mg/dL (8.5-10.1); CREATININE 2.1 mg/dL (0.6-1.3); SODIUM SERUM 137 mmol/L (136-145); UREA NITROGEN, BLOOD 36 mg/dL (7-18)
[2025-07-14 02:29] LABS: ASPARTATE AMINOTRANSFERASE 23 U/L (15-37); TOTAL PROTEIN, SERUM 10.1 g/dL (6.4-8.2)
[2025-07-14 03:28] LABS: APPEARANCE,URINE SLIGHTLY CLOUDY (CLEAR); BLOOD, URINE 2+ Ery/uL (NEGATIVE); LEUKOCYTE ESTERASE ,URINE 2+ (NEGATIVE); NITRITE, URINE NEGATIVE (NEGATIVE); UGLUCOSE NEGATIVE (NEGATIVE)
[2025-07-14 03:40] LABS: ADD URINE CULTURE YES; SQUAMOUS EPITHELIAL CELL,UR Few /HPF (None Seen)
[2025-07-14] MEDS: IV NS 0.9% 1,000 ML BAG IV ONE (03:45)
[2025-07-14] MEDS ORDERED: CEFTRIAXONE 1GM BAG (ER ONLY) 50 ML IV ONE (03:46)
[2025-07-14] MEDS: CEFTRIAXONE 1GM BAG (ER ONLY) 1 GM/50 ML PIGGYBACK IV ONE (03:52)
[2025-07-14] MEDS ORDERED: DEXT15DR23 EACHEYE (08:18)
[2025-07-14] MEDS ORDERED: *INS REG3 SQ (08:18)
[2025-07-14] MEDS ORDERED: FERR220S2 GT (08:18)
[2025-07-14] MEDS ORDERED: DEXTROSE 50%-WATER 50 ML DISP.SYRIN IV PRN (08:30)
[2025-07-14] MEDS ORDERED: MAGNESIUM HYDROXIDE 30 ML UDC GT PRN (09:00)
[2025-07-14] MEDS ORDERED: Medication Not On Formulary EA (Cran/Vitc/Mannose/Inulin/Brom (Uti-Stat Liquid) 30 ML) GT SCH (09:00)
[2025-07-14] MEDS ORDERED: GLUCONOLACT IR SCH (09:00)
[2025-07-14] MEDS ORDERED: NA PHOS,M-B/NA PHOS,DI-BA 1 EA ENEMA RC PRN (09:00)
[2025-07-14] MEDS ORDERED: ACETAMINOPHEN ES 500 MG TABLET GT PRN (09:00)
[2025-07-14] MEDS ORDERED: BISACODYL SUPP (10 MG) 10 MG/SUPP.RECT SUPP.RECT RC PRN (09:00)
[2025-07-14] MEDS ORDERED: [UNRECOGNIZED DRUG - OTHER] IR SCH (09:00)
[2025-07-14] MEDS ORDERED: CITRIC AC IR SCH (09:00)
[2025-07-14] MEDS ORDERED: MAG CARB IR SCH (09:00)
[2025-07-14] MEDS ORDERED: IPRATROPIUM NEB FS 0.5 MG/2.5 ML AMPUL.NEB NEB PRN (09:30)
[2025-07-14] MEDS ORDERED: ALBUTEROL FS 2.5 MG/3 ML VIAL.NEB NEB PRN (09:30)
[2025-07-14] MEDS: CHLORHEXIDINE GLUCONATE 15 ML UDC MM SCH (10:59)
[2025-07-14] MEDS: IV NS 0.9% 1,000 ML IV ONE (11:00)
[2025-07-14] MEDS: ZOSYN IVPB 3.375 G in IV D5W 50ml IV ONE (11:04)
[2025-07-14] MEDS: PANTOPRAZOLE 40 MG VIAL IV SCH (11:04)
[2025-07-14] MEDS: SUCRALFATE 1 G TABLET GT SCH (11:05)
[2025-07-14] MEDS ORDERED: PIPERACILLIN /TAZOBACTAM 2.25 G in IV D5W 50 ML IV SCH (12:00)
[2025-07-14] MEDS: ALBUTEROL FS 2.5 MG/3 ML VIAL.NEB NEB SCH (13:30)
[2025-07-14] MEDS: IPRATROPIUM NEB FS 0.5 MG/2.5 ML AMPUL.NEB NEB SCH (13:30)
[2025-07-14] MEDS: BLOOD SUGAR DIAGNOSTIC 1 EACH STRIP IN SCH (13:31)
[2025-07-14] MEDS: DILTIAZEM HCL 30 MG TABLET GT SCH (13:34)
[2025-07-14] MEDS: POLYVINYL ALCOHOL 15 ML BOTTLE EACHEYE SCH (13:37)
[2025-07-14] MEDS: PIPERACILLIN /TAZOBACTAM 3.375 G in IV D5W 100 ML IV SCH (16:44)
[2025-07-14] MEDS: ACETAMINOPHEN 325 MG TABLET PO PRN (18:54)
[2025-07-14] MEDS: IV 1/2NS 1000 ML 1,000 ML IV PRN (19:06)
[2025-07-15] VITALS (19 sets, daily range): BP systolic 96–147; BP diastolic 52–92; TEMP 98–98.6; O2SAT 99–100
[2025-07-15] MEDS: INSULIN REGULAR, HUMAN 100 UNIT/ML 3 ML VIAL SQ PRN (00:09)
[2025-07-15 04:19] LABS: PLATELET COUNT (AUTO) 216 K/uL (150-450); RED BLOOD CELL COUNT(AUTO) 2.55 MIL/uL (4.5-6.0); RED CELL DISTRIBUTION WIDTH 16.0 % (11.5-15.0); WHITE BLOOD COUNT (AUTO) 14.4 K/uL (4.3-11.0)
[2025-07-15 04:38] LABS: CALCIUM, SERUM 8.7 mg/dL (8.5-10.1); CREATININE 1.9 mg/dL (0.6-1.3); SODIUM SERUM 141.0 mmol/L (136-145); UREA NITROGEN, BLOOD 35.0 mg/dL (7-18)
[2025-07-15 05:00] LABS: CALCIUM, SERUM 8.9 mg/dL (8.5-10.1); CREATININE 1.9 mg/dL (0.6-1.3); SODIUM SERUM 140.0 mmol/L (136-145); UREA NITROGEN, BLOOD 35.0 mg/dL (7-18)
[2025-07-15] MEDS: ZINC SULFATE 220 MG CAPSULE GT SCH (08:47)
[2025-07-15] MEDS: DOCUSATE SODIUM LIQ 100 MG/10 ML UDC PO SCH (08:47)
[2025-07-15] MEDS: FERROUS SULFATE UDC 300 MG/5 ML UDC GT SCH (08:48)
[2025-07-15] MEDS: ASCORBIC ACID 500 MG TABLET GT SCH (08:48)
[2025-07-15] MEDS: MULTIVIT W/MINERALS 1 TAB TABLET GT SCH (08:48)
[2025-07-15 09:59] LABS: PLATELET COUNT (AUTO) 220 K/uL (150-450); RED BLOOD CELL COUNT(AUTO) 2.69 MIL/uL (4.5-6.0); RED CELL DISTRIBUTION WIDTH 16.0 % (11.5-15.0); WHITE BLOOD COUNT (AUTO) 13.6 K/uL (4.3-11.0)
[2025-07-15] MEDS: SOD FERRIC GLUC 125 MG in IV NS 0.9% 100 ML IV SCH (14:35)
[2025-07-16] VITALS: BP 131/62; TEMP 97.7; O2SAT 99
[2025-07-16 04:00] VITALS: BP 148/69; TEMP 97.9; O2SAT 100
[2025-07-16 06:32] LABS: PLATELET COUNT (AUTO) 225 K/uL (150-450); RED BLOOD CELL COUNT(AUTO) 2.49 MIL/uL (4.5-6.0); RED CELL DISTRIBUTION WIDTH 15.8 % (11.5-15.0); WHITE BLOOD COUNT (AUTO) 9.8 K/uL (4.3-11.0)
[2025-07-16 06:48] LABS: CALCIUM, SERUM 8.8 mg/dL (8.5-10.1); CREATININE 1.6 mg/dL (0.6-1.3); SODIUM SERUM 140.0 mmol/L (136-145); UREA NITROGEN, BLOOD 22.0 mg/dL (7-18)
[2025-07-16 08:00] VITALS: BP 140/72; TEMP 97.5; O2SAT 100
[2025-07-16 12:00] VITALS: BP 140/77; TEMP 97.2; O2SAT 95
[2025-07-16 15:13] LABS: OCCULT BLOOD STOOL POSITIVE (NEGATIVE)
[2025-07-16 16:00] VITALS: BP 136/64; TEMP 97.8; O2SAT 100
[2025-07-16 20:00] VITALS: BP 138/76; TEMP 98.1; O2SAT 100
[2025-07-17] VITALS (14 sets, daily range): BP systolic 98–164; BP diastolic 68–85; TEMP 97.1–98.1; O2SAT 98–100
[2025-07-17] MEDS ORDERED: ACETAMINOPHEN 325 MG TABLET PO ONE
[2025-07-17 01:38] LABS: PLATELET COUNT (AUTO) 239 K/uL (150-450); RED BLOOD CELL COUNT(AUTO) 2.28 MIL/uL (4.5-6.0); RED CELL DISTRIBUTION WIDTH 16.0 % (11.5-15.0); WHITE BLOOD COUNT (AUTO) 10.2 K/uL (4.3-11.0)
[2025-07-17 01:45] LABS: CALCIUM, SERUM 8.6 mg/dL (8.5-10.1); CREATININE 1.5 mg/dL (0.6-1.3); SODIUM SERUM 139.0 mmol/L (136-145); UREA NITROGEN, BLOOD 16.0 mg/dL (7-18)
[2025-07-17 02:31] LABS: EOSINOPHILS % (MANUAL) 4 % (0-4); LYMPHOCYTES % (MANUAL) 7 % (16-48); MONOCYTES % (MANUAL) 3 % (0-11.0); NEUTROPHILS % (MANUAL) 86 (42-76); PLATELET ESTIMATE ADEQUATE
[2025-07-17] MEDS: ACETAMINOPHEN 325 MG TABLET PO ONE (03:11)
[2025-07-17 10:33] LABS: PLATELET COUNT (AUTO) 243 K/uL (150-450); RED BLOOD CELL COUNT(AUTO) 3.04 MIL/uL (4.5-6.0); RED CELL DISTRIBUTION WIDTH 15.4 % (11.5-15.0); WHITE BLOOD COUNT (AUTO) 10.9 K/uL (4.3-11.0)
[2025-07-17] MEDS: THERAHONEY GEL 1.5 OZ TUBE TP SCH (12:32)
[2025-07-17] MEDS: GLUCERNA 1.2 1,000 ML BOTTLE PEG PRN (13:16)
[2025-07-17] MEDS: ZOSYN IVPB 3.375 G in IV D5W 50ml IV SCH (22:09)
[2025-07-18] VITALS: BP 137/73; TEMP 97.7; O2SAT 98
[2025-07-18 04:00] VITALS: BP 153/81; TEMP 97.9; O2SAT 100
[2025-07-18 05:52] LABS: PLATELET COUNT (AUTO) 241 K/uL (150-450); RED BLOOD CELL COUNT(AUTO) 2.99 MIL/uL (4.5-6.0); RED CELL DISTRIBUTION WIDTH 16.0 % (11.5-15.0); WHITE BLOOD COUNT (AUTO) 7.6 K/uL (4.3-11.0)
[2025-07-18 05:56] LABS: CALCIUM, SERUM 9.0 mg/dL (8.5-10.1); CREATININE 1.3 mg/dL (0.6-1.3); SODIUM SERUM 140 mmol/L (136-145); UREA NITROGEN, BLOOD 12 mg/dL (7-18)
[2025-07-18 08:00] VITALS: BP 120/69; TEMP 97.7; O2SAT 100
[2025-07-18] MEDS ORDERED: SUCR1TAB31 PO (08:48)
[2025-07-18] MEDS ORDERED: MERO1VIA23 IV (08:48)
[2025-07-18] MEDS: MEROPENEM 1 G in IV NS 0.9% 100 ML IV SCH (11:06)
[2025-07-18 12:00] VITALS: BP 128/69; TEMP 97.5; O2SAT 99
[2025-07-18 16:00] VITALS: BP 134/69; TEMP 98.2; O2SAT 97
[2025-07-18 20:00] VITALS: BP 156/72; TEMP 97.9; O2SAT 100
[2025-07-19] VITALS: BP 141/72; TEMP 97.9; O2SAT 99
[2025-07-19 04:00] VITALS: BP 150/70; TEMP 98.4; O2SAT 100
[2025-07-19 08:00] VITALS: BP 143/73; TEMP 98.1; O2SAT 100; O2SAT 99
[2025-07-19] MEDS: METOCLOPRAMIDE HCL 10 MG/2 ML VIAL IV SCH (08:41)
[2025-07-19 12:00] VITALS: BP 145/77; TEMP 98.4; O2SAT 100
[2025-07-19 16:00] VITALS: BP 151/73; TEMP 98.1; O2SAT 100
[2025-07-19 20:00] VITALS: BP 159/80; TEMP 97.9; O2SAT 100
[2025-07-20] VITALS (7 sets, daily range): BP systolic 125–152; BP diastolic 68–89; TEMP 97.1–98.1; O2SAT 100
[2025-07-20 07:01] LABS: PLATELET COUNT (AUTO) 315 K/uL (150-450); RED BLOOD CELL COUNT(AUTO) 2.95 MIL/uL (4.5-6.0); RED CELL DISTRIBUTION WIDTH 15.1 % (11.5-15.0); WHITE BLOOD COUNT (AUTO) 8.1 K/uL (4.3-11.0)
[2025-07-20 07:12] LABS: CALCIUM, SERUM 9.0 mg/dL (8.5-10.1); CREATININE 1.1 mg/dL (0.6-1.3); SODIUM SERUM 140.0 mmol/L (136-145); UREA NITROGEN, BLOOD 10.0 mg/dL (7-18)
[2025-07-20] MEDS: POTASSIUM CHLORIDE 20 MEQ POWDER PACKET GT ONE (11:35)
[2025-07-20] MEDS: PANTOPRAZOLE 40 MG/PACK PACK GT SCH (18:26)
== END 2025-07-20 22:11 | DRG 870 ==
LOC: ER 01:16 → ICU 08:25 → TELE1 07-15 18:00
PROVIDERS: ADMIT Internal Medicine; ATTEND Internal Medicine
PROC: 5A1955Z Respiratory Ventilation, Greater than 96 Consecutive Hours (ICD-10-PCS; principal; 2025-07-14)
PROC: 05HA33Z Insertion of Infusion Device into Left Brachial Vein, Percutaneous Approach (ICD-10-PCS; 2025-07-16)
PROC: 0DB68ZX Excision of Stomach, Via Natural or Artificial Opening Endoscopic, Diagnostic (ICD-10-PCS; 2025-07-17)
PROC: 30233N1 Transfusion of Nonautologous Red Blood Cells into Peripheral Vein, Percutaneous Approach (ICD-10-PCS; 2025-07-17)
DX: A41.9 Sepsis, unspecified organism (principal); J69.0 Pneumonitis due to inhalation of food and vomit; K29.71 Gastritis, unspecified, with bleeding; J96.21 Acute and chronic respiratory failure with hypoxia; N39.0 Urinary tract infection, site not specified; Z99.11 Dependence on respirator [ventilator] status; N17.9 Acute kidney failure, unspecified; D62 Acute posthemorrhagic anemia; E87.20 Acidosis, unspecified; Z16.12 Extended spectrum beta lactamase (ESBL) resistance; J98.11 Atelectasis; B96.1 Klebsiella pneumoniae [K. pneumoniae] as the cause of diseases classified elsewhere; K21.9 Gastro-esophageal reflux disease without esophagitis; Z86.73 Personal history of transient ischemic attack (TIA), and cerebral infarction without residual deficits; Z85.818 Personal history of malignant neoplasm of other sites of lip, oral cavity, and pharynx; Z93.0 Tracheostomy status; R13.10 Dysphagia, unspecified; B96.5 Pseudomonas (aeruginosa) (mallei) (pseudomallei) as the cause of diseases classified elsewhere; E11.22 Type 2 diabetes mellitus with diabetic chronic kidney disease; Z93.1 Gastrostomy status; S01.80XA Unspecified open wound of other part of head, initial encounter; X58.XXXA Exposure to other specified factors, initial encounter; Y93.9 Activity, unspecified; Y92.129 Unspecified place in nursing home as the place of occurrence of the external cause; N18.30 Chronic kidney disease, stage 3 unspecified; I12.9 Hypertensive chronic kidney disease with stage 1 through stage 4 chronic kidney disease, or unspecified chronic kidney disease
CPT/HCPCS: 31720; 36410; 36415; 71045-TC; 80048-TC; 80076-TC; 81001; 82272-TC; 82962-TC; 83605-TC; 83690-TC; 85025-TC; 85027-TC; 85730-TC; 86850-TC; 87040-TC; 87081-TC; 87086-TC; 87186-TC; 88305-TC; 88313-TC; 88342; 94003-TC; 94760-TC; 94762-TC; 94799-TC; 99082-TC; A4223; A6213; A7526; G0378; J0696; J1200; J1815; J2185; J2405; J2470; J2543; J2720; J2765; J2916; J3490; J7030; J7040; J7050; J7060; P9016